=== PATIENT | female | born 1980 | race Caucasian/White ===

== ENCOUNTER → 2018-12-12 11:19 | Outpatient (CLI) | payer OTHER, SELFPAY ==
[2018-12-12 16:15] LABS: Urine N gonorrhoeae NOT DETECTED
[2018-12-12 17:07] LABS: Urine Chlamydia NOT DETECTED
== END ==
PROVIDERS: Visit Provider Obstetrics & Gynecology
DX: Z11.3 Encounter for screening for infections with a predominantly sexual mode of transmission (principal)
CPT/HCPCS: 87491; 87591

== ENCOUNTER → 2018-12-28 16:19 | Outpatient (CLI) | payer OTHER, SELFPAY ==
[2018-12-28 17:51] LABS: Add Manual Diff / Slide Review NO; Basophils Absolute Auto 0 /uL (0-100); Basophils Percent Auto 0.2 % (0-2); Eosinophils Absolute Auto 0 /uL (0-450); Eosinophils Percent Auto 0.6 % (2-4); Hematocrit 37.7 % (36-46); Lymphocytes Absolute Auto 2100 /uL (1100-4500); Lymphocytes Percent Auto 25.5 % (25-40); Mean Corpuscular HGB Conc 34.5 % (30-36); Mean Corpuscular Hemoglobin 30.6 PG (26-34); Mean Corpuscular Volume 88.6 fL (80-100); Monocytes Absolute Auto 400 /uL (0-900); Monocytes Percent Auto 5.2 % (3-14); Neutrophils Absolute Auto 5600 /uL (1500-7000); Neutrophils Percent Auto 68.5 % (50-75); Platelet Count 231 X10^3/uL (150-400); Red Blood Cell Count 4.25 X10^6/uL (4.0-5.2); Red Cell Distribution Width 12.8 % (11.6-14.8); White Blood Cell Count 8.2 X10^3/uL (4.5-11.0)
[2018-12-28 18:14] LABS: Appearance Urine UA SL CLOUDY; Bilirubin Urine UA NEGATIVE (NEGATIVE); Color Urine UA YELLOW; Glucose Urine UA NEGATIVE (Negative); Ketones Urine UA NEGATIVE (NEGATIVE); Leukocyte Esterase Urine UA TRACE (NEGATIVE); Nitrite Urine UA NEGATIVE (Negative); Occult Blood Urine UA TRACE-LYSED (Negative); Protein Urine UA NEGATIVE (Negative); Specific Gravity Urine UA 1.015 (1.000-1.035); Urobilinogen Urine UA 0.2 E.U./dL (0.2)
[2018-12-28 18:24] LABS: Amorphous Sediment Urine 1+; Bacteria Urine Many (>30); Calcium Oxalate Crystals Urine Few; RBC Urine 0-1/HPF (0-5/HPF); Squamous Epithelial Cell Urine 5-10 /HPF (0-5/HPF); WBC Urine 1-5/HPF (0-5/HPF)
[2018-12-28 18:47] LABS: Hepatitis B Surface Antigen NEGATIVE s/c (NEGATIVE); Rubella Antibody IgG 70.6 IU/mL (>15)
[2018-12-28 19:05] LABS: HIV 1 & 2 Ab/Ag 4th Gen Combo NEGATIVE (NEGATIVE); Hep C Virus Ab w/Reflex Quant NEGATIVE s/c (NEGATIVE)
[2018-12-31 13:32] LABS: RPR Screen Nonreactive (Nonreactive)
[2019-01-08 14:49] LABS: Informaseq SEE SEPARATE REPORT
== END ==
PROVIDERS: Visit Provider Obstetrics & Gynecology
DX: O09.529 Supervision of elderly multigravida, unspecified trimester (principal); Z34.81 Encounter for supervision of other normal pregnancy, first trimester; Z3A.11 11 weeks gestation of pregnancy
CPT/HCPCS: 36415; 80055; 81003; 81015; 81507; 86787; 86803; 86850; 86900; 86901; 87086; 87389

== ENCOUNTER → 2019-02-06 17:09 | Outpatient (CLI) | payer OTHER, SELFPAY ==
[2019-02-08 17:29] LABS: Alpha Fetoprotein 58.8 ng/mL (< 6.1)
[2019-02-27 11:28] LABS: AFP, Serum 58.1 ng/mL; Calc Gestational Age 17.4; Est Date Determined by US; Maternal Weight 135 lbs; Number of Fetuses 1; Prev Pregnancies Down Syndrome N
== END ==
PROVIDERS: PCP Family Medicine; Visit Provider Obstetrics & Gynecology
DX: Z34.82 Encounter for supervision of other normal pregnancy, second trimester (principal); Z3A.18 18 weeks gestation of pregnancy
CPT/HCPCS: 36415; 82105

== ENCOUNTER → 2019-02-26 15:15 | Outpatient (CLI) | payer OTHER, SELFPAY ==
--- NOTE | 2019-02-26 15:17 | DI.US.S_ITS ---
PROCEDURE: US OB >= 14 WEEKS FETUS INDICATIONS: ANATOMY OUTSIDE/PRIOR DATING DATA: Last menstrual period (LMP): 10/06/18 LMP-based estimated date of delivery (SINA): 07/13/19. First dating scan (date and location): 12/12/18. Estimated date of delivery (SINA) from first dating scan: 07/18/19. TECHNIQUE: Real-time scanning was performed of the fetus, with image documentation and biometric measurements. COMPARISON: [facility], , OB >= 14 WEEKS FETUS, 02/06/2019, 16:55. FINDINGS: General: A single living intrauterine gestation is present. Presentation: Vertex. Placenta: Placental position is anterior, without previa. Amniotic fluid index: 12.2 cm, normal range is 5-24 cm. heart rate: 130 beats per minute. Maternal cervical canal: 3.3 cm long. Normal lower limit is 2.5 cm. biometrics: Biparietal diameter: 21 weeks 0 days Head circumference: 20 weeks 4 days Abdominal circumference: 20 weeks 2 days Femur length: 21 weeks 0 days Estimated gestational age from initial scan: 19 weeks 5 days Composite gestational age from present scan: 20 weeks 5 days Estimated weight and percentile: 367 g; 91st percentile Measurement variability for biometric dating: +/- 7 days from 14 weeks to 15 weeks 6 days gestation, +/- 10 days from 16 weeks to 21 weeks 6 days gestation, +/- 2 weeks from 22 weeks to 27 weeks 6 days gestation, +/- 3 weeks for 28 weeks gestation or later. weight reference: 4500 g or EFW >90/95% is considered macrosomia or large for gestational age. EFW <10% is small for gestational age. EFW 5% or less is considered intra-uterine growth restriction. Anatomic survey: Neuro: Ventricles are non-dilated at less than 10 mm. Cisterna magna is normal at 3-11 mm. Cerebellum is normal in size and morphology. Nuchal skin fold: Normal at less than 6 mm between 14-21 weeks gestational age. Face: Nose and lips, facial profile are normal. Spine: No evidence for spina bifida. Heart: 4-chambered heart is present, with normal ventricular outflow tracts. Diaphragm: Diaphragm is intact. Stomach: Left-sided stomach is present. Kidneys: No hydronephrosis. Normal is less than 5 mm in 2nd trimester, less than 7 mm in 3rd trimester. Cord: 3-vessel cord has orthotopic insertion. Bladder: Normal in size. Extremities: All 4 extremities identified. IMPRESSION: 1. Single living IUP redemonstrated and interval growth is upper limits of normal. 2. Normal anatomic survey. Dictated by: Alistair BRADFORD Interpreted: Marlon West MD on 02/26/2019 at 16:42 Approved by: Marlon West M.D. on 02/26/2019 at 16:55
== END ==
PROVIDERS: PCP Family Medicine; Visit Provider Obstetrics & Gynecology
DX: Z34.82 Encounter for supervision of other normal pregnancy, second trimester (principal); Z3A.20 20 weeks gestation of pregnancy
CPT/HCPCS: 76811

== ENCOUNTER → 2019-04-05 13:36 | Outpatient (CLI) | payer OTHER, SELFPAY ==
[2019-04-05 15:03] LABS: Hematocrit 33.8 % (36-46)
[2019-04-05 19:16] LABS: GTT (PREG) 1 Hour PP 50gm Dose 175 mg/dL (76-139)
== END ==
PROVIDERS: PCP Family Medicine; Visit Provider Obstetrics & Gynecology
DX: Z34.82 Encounter for supervision of other normal pregnancy, second trimester (principal); Z3A.25 25 weeks gestation of pregnancy
CPT/HCPCS: 36415; 82950; 85014; 85018

== ENCOUNTER → 2019-04-12 07:01 | Outpatient (CLI) | payer OTHER, SELFPAY ==
[2019-04-12 08:48] LABS: Glucose Fasting 92 mg/dL (70-100)
[2019-04-12 09:55] LABS: Glucose 1 Hour 169 mg/dL (70-170)
[2019-04-12 10:36] LABS: Glucose Tol Interpretation INTERPRETATION
[2019-04-12 10:48] LABS: Glucose 2 Hour 143 mg/dL (70-140)
[2019-04-12 11:14] LABS: Glucose 3 Hour 121 mg/dL (70-115)
== END ==
PROVIDERS: PCP Family Medicine; Visit Provider Obstetrics & Gynecology
DX: O99.810 Abnormal glucose complicating pregnancy (principal)
CPT/HCPCS: 36415; 82951; 82952

== ENCOUNTER → 2019-06-18 18:30 | Outpatient (ROUT) | payer OTHER, SELFPAY | PROVIDERS: PCP Family Medicine; Visit Provider Nurse Practitioner Obstetrics & Gynecology | DX: Z36.85 Encounter for antenatal screening for Streptococcus B (principal) | CPT/HCPCS: 87081 ==

== ENCOUNTER 2019-06-30 22:22 | Observation (INO) | payer OTHER, SELFPAY ==
--- NOTE | 2019-06-30 22:59 | PM.OBTRLD ---
Visit Information Visit Information Date of evaluation: 06/30/19 Primary OB Provider: Annia Mccauley On-call OB Provider: Vanesa Lamar Reason for Evaluation: Yes rupture of membranes Comments/Additional reasons for admission: 38YO @38wks here for evaluation of FM after SROM @ 2pm today. Noted repeated gushes of clear fluid starting at 2pm. Declined to come in for evaluation or active management of PROM, but is now concerned about minimal FM this evening. Has been having runs of uncomfortable contractions and then they ease. Now feeling regular, mild contractions. Has noticed occasional spotting mixed w/ mucus vaginal discharge. CE in clinic today /-. Vital Signs Vital Signs: BP 136/80, HR 83, T 36.3C Temporal PFSH Medical History Acne (Chronic) Anxiety (Chronic) Plantar warts (Chronic) Ureteral reflux (Chronic) Family History Grandmother Dementia Grandfather Cancer Social History Smoking Status: Never smoker Review of Systems Review of Systems ROS: Yes All systems reviewed with the patient and are negative except as otherwise documented Exam Presentation: vertex Estimated Weight (lbs): 7 Amniotic Fluid: clear Evaluation Evaluation Baseline heart rate: 130 Variability: Moderate (11-25) monitor accelerations: Absent monitor decelerations: Absent Contraction Frequency (minutes): 4 Uterine Contraction Intensity: Mild Category of Tracing: I Comments: CE deferred Diagnosis, Plan/Disposition Final Diagnosis (1) PROM (premature rupture of membranes): Current Visit: Yes Status: Acute Problem details: PROM x 9 hours without sx of infection Plan/Disposition Plan: Counseled on recommendation for active management of PROM by 12 hours of rupture. Pt is aware of increased risk of infection and declines admission and augmentation at this time. Pt plans to go home and get some rest and is willing to come in NLT 7am if not in labor before than. OB back-up notified of this plan, as a courtesy. OB Disposition: home
== END 2019-06-30 23:00 | disposition home or self-care (01) ==
LOC: LABOR 22:23
PROVIDERS: Admitting Provider Nurse Practitioner Obstetrics & Gynecology; PCP Family Medicine; Referring Provider Nurse Practitioner Obstetrics & Gynecology; Visit Provider Nurse Practitioner Obstetrics & Gynecology
DX: O42.90 Premature rupture of membranes, unspecified as to length of time between rupture and onset of labor, unspecified weeks of gestation (principal); Z3A.38 38 weeks gestation of pregnancy
CPT/HCPCS: 59025; 84112; G0378; G0379

== ENCOUNTER 2019-07-01 07:23 | Inpatient (IN) | payer OTHER, SELFPAY ==
--- NOTE | 2019-07-01 07:45 | P.HPOB_ITS ---
OB HPI Date/Time Date of admission: 07/01/19 Date Patient Seen: 07/01/19 Time Patient Seen: 08:00 History of Present Condition Chief complaint: OBS : 2 Para: 1 Estimated Date of Delivery: 07/14/19 Estimated Gestational Age (weeks): 38.1 Narrative: Anastasia Clay is a 38 year old female @ 38wks by LMP and early US presents for augmentation of labor after PROM, clear fluid, 06/30/19 @ 1400. Pt has experienced irregular, mild ctx, but has not progressed to active labor. has declined Active management of PROM until now. Was able to ssleep overnight. Regular, uncomplicated PN care w/ [facility] and transferred to [facility] @ 28wks. Desires low intervention . Declines CE to check for/AROM forebag. and clinical partner are present and supportive. Indications Other reason(s) for admission: PROM x18 hours, clear fluid, not in labor History of Present care: good care Dating criteria: LMP confirmed by 1st trimester US Obstetrical complications: none Medical complications: none Narrative: Depression/anxiety stable on Citalopram 10mg daily Preadmission Labs Blood type: A (+) positive -: Antibody screen: negative, Cystic fibrosis screen: unknown, GBS status: negative, HBsAG: negative, HIV: negative and RPR/VDLR: negative -: Chlamydia screen: not detected and Gonorrhea screen: not detected -: Rubella: immune HCT: 33.8 HCAB: reactive Cell-free DNA: negative/male 3 hr GTT: 1 hr (169), 2 hr (143) and 3 hr Fasting blood glucose: 92 Prior (ies) History: 02/01/17- NSVB @ 39wks, female, 7#10oz, PROM IOL w/ pitocin and 28 hr labor, epidural, 2nd degree, PP depression Evaluation Evaluation Baseline heart rate: 135 Variability: Moderate (11-25) monitor accelerations: Present monitor decelerations: Absent Contraction Frequency (minutes): 3 Uterine Contraction Intensity: Mild Category of Tracing: I Comments: CE deferred, last CE in clinic 06/30/19 was 6/90/-1. SROM was confirmed by [facility] 06/30/19 @ 2230 w/ reactive LAW [employer]OR at that time. [facility] Medical History Acne (Chronic) Anxiety (Chronic) Plantar warts (Chronic) Ureteral reflux (Chronic) Family History Grandmother Dementia Grandfather Cancer Social History Smoking Status: Never smoker Meds Home Medications and Allergies Home Medications Medication Instructions Recorded Confirmed Type prenat.vits,kami,[id number] 1 tab PO DAILY 12/05/18 07/01/19 History citalopram 10 mg tablet 10 mg PO DAILY #30 tab 04/05/19 07/01/19 Rx Allergies Allergy/AdvReac Type Severity Reaction Status Date / Time No Known Drug Allergies Allergy Verified 07/01/19 08:46 Review of Systems Review of Systems ROS: Yes All systems reviewed with the patient and are negative except as otherwise documented Exam Vital Signs (past 8 hours): BP 122/72, HR90, T36.9C Temporal Resp Effort & Inspection: normal respiratory effort Auscultation: clear to auscultation bilaterally Cardio Rate: regular rate Rhythm: regular rhythm Heart Sounds: S1 normal and S2 normal Presentation: vertex Amniotic Fluid: clear Objective Labs Result Diagrams: 07/01/19 08:10 Assessment and Plan Assessment and Plan Assessment and Plan narrative: A: Term multipara @ 38.1wks PROM x 18 hours, no sx of infection Not in labor No indication for GBS prophylaxis Cat I FHR P: Admit, routine orders w/ CBC, T&S and pitocin augmentation. No cervical exam until breathing through strong contractions for 2 hours. Labor support PRN. OB back-up aware of patient status and plan of care. Reassess in 4 hours or sooner, PRN. Time Spent with Patient Total time spent with greater than 50% in coordination of care (as documented) at patient's floor/unit and/or counseling patient:: 15-24 minutes
[2019-07-01] MEDS: OXYTOCIN PREMIX 30 UNIT/500 ML PLAST..BAG IV (08:32)
[2019-07-01] MEDS: LACTATED RINGERS 1,000 ML 100 ML IV ×3 (08:32→17:30)
[2019-07-01 08:34] LABS: Add Manual Diff / Slide Review NO; Basophils Absolute Auto 0 /uL (0-100); Basophils Percent Auto 0.3 % (0-2); Eosinophils Absolute Auto 0 /uL (0-450); Eosinophils Percent Auto 0.3 % (2-4); Hematocrit 37.4 % (36-46); Hemoglobin 12.5 g/dL (12.0-16.0); Lymphocytes Absolute Auto 2800 /uL (1100-4500); Lymphocytes Percent Auto 22.8 % (25-40); Mean Corpuscular HGB Conc 33.5 % (30-36); Mean Corpuscular Hemoglobin 30.4 PG (26-34); Mean Corpuscular Volume 90.7 fL (80-100); Monocytes Absolute Auto 800 /uL (0-900); Monocytes Percent Auto 6.7 % (3-14); Neutrophils Absolute Auto 8600 /uL (1500-7000); Neutrophils Percent Auto 69.9 % (50-75); Platelet Count 169 X10^3/uL (150-400); Red Blood Cell Count 4.12 X10^6/uL (4.0-5.2); Red Cell Distribution Width 13.8 % (11.6-14.8); White Blood Cell Count 12.4 X10^3/uL (4.5-11.0)
[2019-07-01 08:42] VITALS: BP 122/72
--- NOTE | 2019-07-01 12:17 | PM.OBPRVD ---
 Events: Labor Augmentation and Premature Rupture of Membrane Labor & Delivery Delivery date: 07/01/19 Intrapartal events: None Cervical ripening method: none Induction method: none Delivery augmentation: pitocin Delivery monitor: external FHT and external uterine Route of delivery: L&D Laceration Description: Superficial Estimated blood loss (mL): 25 Anesthesia type: None Narrative: Pitocin max dose 4mu/min. Pt consented to AROM of forebag at 1032 and strong contractions started at 1035. Shortly thereafter, the pitocin was decreased to 2mu/min. Pt labored well unmedicated w/ rapid progression to spontaneous pushing, presumed complete at 1133. Cat I FHR throughout short 1st stage. Pt pushed well in R lateral position w/ Cat 2 FHR for decelerations to 90's. NSVB of a vigorous baby boy in direct OA position w/ no nuchal cord. There was a compound R hand, but no additional maneuvers were needed for delivery of the shoulders. After management of the shoulders, FOB put hands on and lifted the to maternal abdomen. Pitocin was increased to 350mL/hr for AMTSL. After cessation of pulsation, the cord was double clamped by CNM and cut by FOB. Cord blood sample was collected to hold. Gentle cord traction and single maternal push led to spontaneous, Schultze delivery of an apparently intact placenta, membranes and 3VC. Fundus immediately firm and bleeding minimal. Inspection revealed a superficial perineal laceration w/ no indication for repair. Both mother and baby stable and skin to skin as I left the room. Baby 1: gender: Male Presentation: vertex Placenta delivery description: Spontaneous cord vessel description: 3 Vessels score (1 min): 8 score (5 min): 9 Plan for aftercare: Routine PP orders. support. Anticipate d/c to home in 18-24 hours.
[2019-07-01] MEDS: KETOROLAC 30 MG/ML VIAL IV (12:49)
[2019-07-01] MEDS: miSOPROStoL 200 MCG TABLET 400 MCG PO ×2 (12:52→17:31)
[2019-07-01] MEDS: ACETAMINOPHEN 325 MG TABLET 650 MG PO ×2 (15:18→23:08)
[2019-07-01] MEDS: DERMOPLAST SPRAY 20% 60 ML 1 SPRAY TOP (15:19)
[2019-07-01] MEDS: LANOLIN OINT 7 GM 1 APPLIC TOP (15:19)
[2019-07-01] MEDS: OXYCODONE IR 5 MG TABLET PO (16:36)
[2019-07-01] MEDS: METHYLERGONOVINE 0.2 MG/ML VIAL IM (16:43)
[2019-07-01 17:16] LABS: Add Manual Diff / Slide Review NO; Basophils Absolute Auto 100 /uL (0-100); Basophils Percent Auto 0.3 % (0-2); Eosinophils Absolute Auto 0 /uL (0-450); Hematocrit 31.7 % (36-46); Hemoglobin 10.7 g/dL (12.0-16.0); Lymphocytes Absolute Auto 2800 /uL (1100-4500); Lymphocytes Percent Auto 14.8 % (25-40); Mean Corpuscular HGB Conc 33.6 % (30-36); Mean Corpuscular Hemoglobin 30.2 PG (26-34); Monocytes Absolute Auto 1800 /uL (0-900); Monocytes Percent Auto 9.2 % (3-14); Neutrophils Absolute Auto 14500 /uL (1500-7000); Neutrophils Percent Auto 75.7 % (50-75); Platelet Count 175 X10^3/uL (150-400); Red Blood Cell Count 3.53 X10^6/uL (4.0-5.2); Red Cell Distribution Width 13.4 % (11.6-14.8); White Blood Cell Count 19.1 X10^3/uL (4.5-11.0)
--- NOTE | 2019-07-01 17:57 | PM.PN.1 ---
Subjective Subjective Date Patient Seen: 07/01/19 Time Patient Seen: 16:10 Interval history: Bleeding after was 25mL. About 1 hour after , RN reported fundus at U+3 and massaged several clots out. After tht, no further clots, but bleeding remained a steady trickle w/ fundus firm @ U. Remaining 30 units of pitocin in 500mL LR was opened to a bolus and misprostol 400mcg SL was given. Bleeding did not subside and fundus as repeatedly massaged to firm @ U. Patient was assisted to the bathroom, was able to empty her bladder, not measured, reported large quantity by RN. After returning to bed, bleeding was minimal and estimated well below 500mL. Called by RN @ 1603 for patient passed out during her 3rd trip to the bathroom. STAT CBC, 2L LR, and IM Methergine 0.2mg IM ordered verbally. When CNM arrived, pt still on floor in bathroom w/ 3 RNs. All pads since collected and measured, added to an estimated 200mL blood in toilet for a total of 883mL. Patient was assisted back to bed w/ BP 123/86, HR 90's. Healy placed and 200mL clear, yellow urine drained. Admit Hgb/Hct: 12.5/37.4, STAT Hgb/Hct now: 10.7/31.7. Fundus firm, slightly deviated to the right. Oxycodone 5mg PO given for pain relief w/ fundal massage. Patient continues to have a slow trickle of blood, unable to tolerate massage and exam. called and presence requested for consultation, notified patient will need anesthesia if bimanual exam needed. Additional 400mcg Misoprostol SL given and portable US at bedside for her consultation. Bleeding seems to have slowed at this time. Methergine 0.2mg PO Q4hrs PRN ordered and repeat CBC ordered for 2300. Will standby for consultation and continue to monitor closely. Objective Labs Result Diagrams: 07/01/19 17:10 Labs: Laboratory Results - last 24 hr 07/01/19 07/01/19 07/01/19 08:10 08:10 17:10 WBC 12.4 H 19.1 H D RBC 4.12 3.53 L Hgb 12.5 10.7 L Hct 37.4 31.7 L MCV 90.7 90.0 MCH 30.4 30.2 MCHC 33.5 33.6 RDW 13.8 13.4 Plt Count 169 175 Neut % (Auto) 69.9 75.7 H Lymph % (Auto) 22.8 L 14.8 L [place] % (Auto) 6.7 9.2 Eos % (Auto) 0.3 L 0.0 L Baso % (Auto) 0.3 0.3 Neut # (Auto) 8600 H 95285 H Lymph # (Auto) 2800 2800 [place] # (Auto) 800 1800 H Eos # (Auto) 0 0 Baso # (Auto) 0 100 Blood Type A Positive Antibody Screen Negative Assessment & Plan Assessment and plan (1) Syncope due to orthostatic hypotension: Problem details: Heavy bleeding, not yet meeting criteria for PPH contorlled and 2L LR IVF given for fluid replacement. Will continue to monitor closely. Current visit: Yes Status: Acute
--- NOTE | 2019-07-01 18:32 | PM.CN ---
History of Present Illness Consult details Date Patient Seen: 07/01/19 Time Patient Seen: 18:32 Chief complaint: OBS Reason for consult: persistent bleeding Requesting provider: Annia Mccauley Narrative: 38-year-old P2 female delivered via at approximately 11:30 a.m. She had spontaneous delivery of the placenta and normal bleeding initially after delivery, reported minimal bleeding. She only had a small perineal abrasion. Approximately hour after delivery uterus was noted to be somewhat higher and uterine massage expressed a few clots. She reportedly was then fine for a few hours, with normal lochia. At approximately 4:00 p.m. however she then passed out in the bathroom. Prior to that she had a large amount of blood in the toilet when she voided. Uterine massage performed and she did not have any subsequent heavy bleeding, but called since she is still having a steady trickle. Total EBL since delivery approximately 800 mL with measuring her pads and EBL from delivery. Patient had received IV Pitocin, Methergine and 400 mcg Misoprostil since delivery. I advised to give an additional 400-600 mcg misoprostol per rectum or buccal while I came into the hospital to evaluate her. On my arrival, her bleeding had improved, no longer steady trickle, appears to be normal lochia. I was advised that patient would be to sore to have any exam, uterine exploration at the bedside and would it would need to be under anesthesia if needed. Patient no longer feeling lightheaded. No dyspnea. Meds Home Medications and Allergies Home Medications Medication Instructions Recorded Confirmed Type prenat.vits,kami,[id number] 1 tab PO DAILY 12/05/18 07/01/19 History citalopram 10 mg tablet 10 mg PO DAILY #30 tab 04/05/19 07/01/19 Rx Allergies Allergy/AdvReac Type Severity Reaction Status Date / Time No Known Drug Allergies Allergy Verified 07/01/19 08:46 Exam Vital Signs (past 8 hours): afebrile Bp 123/86 P 90 Narrative Exam Narrative: Bedside ultrasound at 6:00 p.m. showed some echogenic material in the uterus near the fundus measuring approximately 2.6 cm. I discussed this may be some normal clot. This did not extend through the uterus. Mid to lower uterus normal endometrial thickness. With uterine massage she did not have anything come out per vagina. Upon rechecking her pad since that time 3 times, she has remained with normal lochia over the past hour. Nothing or minimal expressed with uterine massage. Fundus is U +2, firm. Objective Labs Result Diagrams: 07/01/19 17:10 Labs: Laboratory Results - last 24 hr 07/01/19 07/01/19 07/01/19 08:10 08:10 17:10 WBC 12.4 H 19.1 H D RBC 4.12 3.53 L Hgb 12.5 10.7 L Hct 37.4 31.7 L MCV 90.7 90.0 MCH 30.4 30.2 MCHC 33.5 33.6 RDW 13.8 13.4 Plt Count 169 175 Neut % (Auto) 69.9 75.7 H Lymph % (Auto) 22.8 L 14.8 L [place] % (Auto) 6.7 9.2 Eos % (Auto) 0.3 L 0.0 L Baso % (Auto) 0.3 0.3 Neut # (Auto) 8600 H 01389 H Lymph # (Auto) 2800 2800 [place] # (Auto) 800 1800 H Eos # (Auto) 0 0 Baso # (Auto) 0 100 Blood Type A Positive Antibody Screen Negative Assessment & Plan Assessment & Plan narrative: Impression: Delayed heavier bleeding, possibly due to atony from some intrauterine clots now expressed, bleeding now improved status post additional misoprostol Plan: Continue observation for now. Will keep her NPO for next hour yet, then may eat if bleeding remains normal. Time Spent With Patient Time with patient: 15-24 minutes
[2019-07-01] MEDS: IBUPROFEN 600 MG TABLET PO (19:22)
[2019-07-01] MEDS: METHYLERGONOVINE 0.2 MG TABLET PO (23:08)
[2019-07-01] MEDS: CITALOPRAM 10 MG TABLET PO (23:09)
[2019-07-01] MEDS: DOCUSATE 100 MG CAPSULE PO (23:09)
[2019-07-01 23:23] LABS: Hemoglobin 9.1 g/dL (12.0-16.0); Mean Corpuscular HGB Conc 33.8 % (30-36); Mean Corpuscular Hemoglobin 30.2 PG (26-34); Mean Corpuscular Volume 89.2 fL (80-100); Platelet Count 161 X10^3/uL (150-400); Red Blood Cell Count 3.03 X10^6/uL (4.0-5.2); Red Cell Distribution Width 13.2 % (11.6-14.8); White Blood Cell Count 17.3 X10^3/uL (4.5-11.0)
[2019-07-02] MEDS: IBUPROFEN 600 MG TABLET PO ×2 (02:41→09:35)
[2019-07-02] MEDS: METHYLERGONOVINE 0.2 MG TABLET PO ×2 (03:05→07:46)
[2019-07-02] MEDS: DOCUSATE 100 MG CAPSULE PO (07:45)
[2019-07-02] MEDS: PRENATAL VIT,CALC/IRON/FOLIC 1 TABLET 1 TAB PO (07:46)
[2019-07-02] MEDS: ACETAMINOPHEN 325 MG TABLET 650 MG PO (09:36)
--- NOTE | 2019-07-02 09:53 | P.DS_ITS ---
Discharge Providers Provider Date of admission: 07/01/19 07:23 Discharge Date: 07/02/19 Primary care physician: Chelle Porter MD Consults: 07/02/19 12:13 Consult to Configuration Specialist Routine Comment: Discharge provider: Annia Mccauley CNM Summary Discharge Diagnosis (1) Syncope due to orthostatic hypotension: Status: Acute Problem Details: Heavy bleeding, not yet meeting criteria for PPH controlled and 2L LR IVF given for fluid replacement. VS stable overnight without hypotensive symptoms. Hgb- 9.1, Hct-27. IV iron sucrose 300mg To be given prior to discharge. (2) Encounter for full-term uncomplicated delivery: Status: Acute Problem Details: Routine PP discharge orders and anticipatory guidance Time Spent with Patient Time attestation: Total time spent providing and/or coordinating discharge services: Objective Labs Result Diagrams: 07/01/19 23:05 Labs: Laboratory Results - last 24 hr 07/01/19 07/01/19 17:10 23:05 WBC 19.1 H D 17.3 H RBC 3.53 L 3.03 L Hgb 10.7 L 9.1 L Hct 31.7 L 27.0 L MCV 90.0 89.2 MCH 30.2 30.2 MCHC 33.6 33.8 RDW 13.4 13.2 Plt Count 175 161 Neut % (Auto) 75.7 H Lymph % (Auto) 14.8 L [place] % (Auto) 9.2 Eos % (Auto) 0.0 L Baso % (Auto) 0.3 Neut # (Auto) 18674 H Lymph # (Auto) 2800 [place] # (Auto) 1800 H Eos # (Auto) 0 Baso # (Auto) 100 Exam Vital Signs (past 8 hours): BP 114/78, HR95, RR 98, T98.0F Temporal Other: FF@u, fundus persistently deviated to the right since delivery. Lochia light, no clots. Mild vulvar edema, perineum well approximated. Psych Appearance: grossly normal and well kempt Affect: normal affect Discharge Plan Discharge Plan Patient Disposition: Home Discharge comment: after IV Fe Discharge orders & Medications Prescriptions: New oxycodone 5 mg Tablet 5 mg PO Q4HR PRN (Reason: Pain, Moderate (4-6)) 2 Days Qty: 6 RF: 0 acetaminophen 325 mg Tablet 650 mg PO Q6HR PRN (Reason: Pain, Mild (1-3)) 14 Days Qty: 60 RF: 0 ibuprofen 600 mg Tablet 600 mg PO Q6HR PRN (Reason: Pain, Mild (1-3)) 14 Days Qty: 60 RF: 2 Continued prenat.vits,kami,[id number]-[id number] tablet 1 tab PO DAILY RF: 0 citalopram [Celexa] 10 mg tablet 10 mg PO DAILY Qty: 30 RF: 3 Follow up/Referrals: Chelle Porter MD [Primary Care Provider] - Annia Mccauley CNM [Advanced Harm Reduction Worker] - (Follow-up in 2 weeks and 6 weeks. Patient to schedule appointments online. ) Diet/Activity/Treatments Diet: Diet as Tolerated and Regular Skin/Wound/Dressing Care Report to your healthcare provider any signs of infection, such as:: chills, fever, increased pain, unusual drainage and unusual redness Visit Report/Discharge Packet Instructions: Depression, Anemia Discharge Data Primary Care Provider: Chelle Porter
[2019-07-02] MEDS: IRON SUCROSE 300 MG in SODIUM CHLORIDE 0.9% 100 ML 115 ML IV (10:28)
== END 2019-07-02 18:30 | disposition home or self-care (01) | DRG 807 ==
PROVIDERS: Admitting Provider Nurse Practitioner Obstetrics & Gynecology; PCP Family Medicine; Referring Provider Nurse Practitioner Obstetrics & Gynecology; Visit Provider Nurse Practitioner Obstetrics & Gynecology
DX: O42.02 Full-term premature rupture of membranes, onset of labor within 24 hours of rupture (principal); Z37.0 Single live birth; Z3A.38 38 weeks gestation of pregnancy; I95.1 Orthostatic hypotension
CPT/HCPCS: 36415; 59025; 59050; 76815; 84112; 85025; 85027; 86850; 86900; 86901; G0378; G0379; J1756; J1885; J2210; J2590; S0191

== ENCOUNTER 2022-03-03 19:50 | Emergency (ER) | payer OTHER, SELFPAY ==
[2022-03-03 19:59] VITALS: BP 150/78; PULSE 83; RESP 20; TEMP 37; O2SAT 97; BMI 52.4
--- NOTE | 2022-03-03 20:01 | ED.GENADULT ---
HPI - General Adult General Chief complaint: Ear Stated complaint: Lt. ear pain Time Seen by Provider: 03/03/22 19:59 History of Present Illness HPI narrative: 41-year-old female nonsmoker with noncontributory medical history presents with a chief complaint of some mild upper respiratory symptoms including nasal congestion and some sneezing and then significant left ear pain over the course of the day. She denies any trauma or injury and has not been swimming or diving. She denies any fever or chills. She denies bleeding or drainage but does feel like her ear is plugged. She is had no chest pain or shortness of breath. She denies nausea, vomiting or diarrhea. Related Data Home Medications Medication Instructions Recorded Confirmed prenat.vits,kami,dep-[id number] 1 tab PO DAILY 12/05/18 07/01/19 Previous Rx's Medication Instructions Recorded ibuprofen 600 mg tablet 600 mg PO Q6HR PRN Pain, Mild 07/02/19 (1-3) 14 days #60 tabs citalopram 10 mg tablet See Rx Instructions .Route 09/18/19 .COMPLEX #90 tabs Allergies Allergy/AdvReac Type Severity Reaction Status Date / Time No Known Drug Allergies Allergy Verified 07/01/19 08:46 Review of Systems Review of Systems Narrative: GENERAL: See HPI HEENT: See HPI RESPIRATORY: See HPI CARDIOVASCULAR: Denies chest pain, palpitations, orthopnea, edema, GASTROINTESTINAL: Denies nausea, vomiting, abdominal pain, diarrhea, constipation, melena. : Denies dysuria, frequency, incontinence, hematuria, urinary retention. MUSCULOSKELETAL: denies weakness, joint pain, or bony pain SKIN: Denies rash, skin lesions, or other NEUROLOGIC: Denies weakness, headache, numbness, change in speech, confusion, seizures, incoordination. PSYCHIATRIC: No concerning psychosocial issues. 12 point review of systems is negative except for those stated above Patient History Medical History Acne Anxiety Plantar warts Ureteral reflux Family History Grandmother Dementia Grandfather Cancer Social History Smoking Status: Never smoker Smoking Status: Never smoker Exam Narrative Exam Narrative: GEN: AOx3 and in mild distress EYES: Pupils are equal, round, and reactive to light and accommodation. Extraoccular muscles are intact bilaterally. There is no subconjunctival hemorrhage or exudate. ENT: Left tympanic membrane is clear with normal landmarks, no effusion or perforation noted, external auditory canal has very minimal erythema but no edema or drainage. CHEST: Lungs are clear to auscultation bilaterally and free of wheezes, rales, or rhonchi. Heart rate is regular rhythm, there are no murmurs, clicks, rubs, or gallops. There is no chest wall tenderness. ABD: Abdomen is soft and nontender. There is no guarding or rebound. Bowel sounds are normal in all 4 quadrants. There is no mass or organomegaly. EXT: Full painless ROM of all extremities with no loss of sensation or strength. SKIN: Warm, pink, and dry. No erythema or rash Initial Vital Signs Initial Vital Signs: Vital Signs Temperature 98.6 F 03/03/22 19:59 Pulse Rate 83 03/03/22 19:59 Respiratory Rate 20 03/03/22 19:59 Blood Pressure 150/78 H 03/03/22 19:59 Pulse Oximetry 97 03/03/22 19:59 Oxygen Delivery Method 03/03/22 19:59 Course Orders Ordered: Discontinued Medications Hydrocodone Bitart/Acetaminophen (Hydrocodone/Acet 5/325 Prepack) 1 bottle MISC SEEINSTR ONE Stop: 03/03/22 20:12 Last Admin: 03/03/22 20:28 Dose: 1 bottle Documented By: BS Vital Signs Vital signs: Vital Signs - 8 hr 03/03/22 19:59 Temperature 98.6 F Pulse Rate 83 Respiratory Rate 20 Blood Pressure 150/78 H Pulse Oximetry 97 Oxygen Delivery Method Room Air Medical Decision Making [facility] Narrative Medical decision making narrative: Patient with reassuring history and physical, no trauma, fever or evidence of bacterial infection, perhaps minimal erythema but clear tympanic membrane with normal landmarks. No perforation, bulging, retraction or obvious effusion. We discussed that there is currently not any indication for antibiotics, recommended antihistamines, anti-inflammatories and decongestants. Given return precautions and questions answered to her apparent satisfaction Discharge Plan Departure Patient Disposition: Home Clinical Impression: Acute otalgia Qualifiers: Laterality: left Qualified Code(s): H92.02 - Otalgia, left ear Instructions: DI for Ear Pain-Adult Activity Restrictions/Additional Instructions: *You have been diagnosed with [left ear pain. As we discussed your history and physical exam are reassuring. There is no evidence at this time of a bacterial infection. Please consider the use of the ewes-lhn-jaassgu medications listed below as we discussed] *What to do: *Please consider the use of an [id number] antihistamines such as Yue, Zyrtec or Benadryl to dry the nasal secretions that are likely the cause of your ear pain. Additionally, as we discussed a decongestant (pseudoephedrine typically works a bit better than phenylephrine). As well as routine use of anti-inflammatories for the next few days. *Please follow up with your primary care provider in 2-3 days, call for an appointment. Let them know you were seen in the Emergency Department and that we ask that you be seen in follow up. We will electronically transmit a record of today's note if your PCP is in our system *If you do not have a primary care provider please contact the [facility] Resource line at [phone]. They will ask some questions about your medical history and help get you set up with a doctor in the community. *Return to Emergency Department if you should have any new, worsening or concerning symptoms Prescriptions: No Action citalopram 10 mg tablet See Rx Instructions .ROUTE .COMPLEX Qty: 90 3RF Dose Instruction: TAKE ONE TABLET BY MOUTH ONE TIME DAILY Rx Instructions: TAKE ONE TABLET BY MOUTH ONE TIME DAILY prenat.vits,kami,wrd-ggei-wvbqe tablet 1 tab PO DAILY ibuprofen 600 mg Tablet 600 mg PO Q6HR PRN (Reason: Pain, Mild (1-3)) 14 Days Qty: 60 2RF Referrals: Chelle Porter MD [Primary Care Provider] - Visit Report Forms: Patient Portal/API
[2022-03-03] MEDS: HYDROCODONE/ACET 5/325 PREPACK 1 BOTTLE MISC (20:28)
== END 2022-03-03 20:54 | disposition home or self-care (01) ==
PROVIDERS: Emergency Provider Emergency Medicine; PCP Family Medicine
DX: H92.02 Otalgia, left ear (principal)
CPT/HCPCS: 99281

== ENCOUNTER → 2022-03-13 09:29 | Outpatient (CLI) | payer OTHER, SELFPAY ==
[2022-03-13 10:58] LABS: Influenza A - CEPHEID Flu A NEGATIVE (NEGATIVE); Influenza B - CEPHEID Flu B NEGATIVE (NEGATIVE); Respiratory Syncytial Virus Negative (Negative)
[2022-03-13 11:34] LABS: COVID-19 CEPHEID 4-PLEX PCR Negative (Negative)
== END ==
PROVIDERS: PCP Family Medicine; Visit Provider Physician Assistant
DX: J06.9 Acute upper respiratory infection, unspecified (principal); Z20.822 Contact with and (suspected) exposure to COVID-19
CPT/HCPCS: 0241U

== ENCOUNTER → 2023-09-19 10:40 | Outpatient (CLI) | payer OTHER, SELFPAY ==
--- NOTE | 2023-09-19 10:41 | DI.RAD.S_ITS ---
PROCEDURE: XR CHEST 2V INDICATIONS: Cough TECHNIQUE: 2 views of the chest were acquired. COMPARISON: None. FINDINGS: Surgical changes and devices: None. Lungs and pleura: Lungs are clear. No pleural effusions or pneumothorax. Mediastinum: Mediastinal contours are normal. Heart size is normal. Bones and chest wall: No suspicious bony abnormalities. Soft tissues appear unremarkable. IMPRESSION: No acute cardiopulmonary abnormality is seen. Dictated by: Silvano Lima M.D. on 09/19/2023 at 11:46 Approved by: Silvano Lima M.D. on 09/19/2023 at 11:46
== END ==
LOC: RAD 10:41
PROVIDERS: PCP Family Medicine; Referring Provider Nurse Practitioner Family; Visit Provider Nurse Practitioner Family
DX: R05.9 Cough, unspecified (principal)
CPT/HCPCS: 71046

== ENCOUNTER → 2025-02-26 09:35 | Outpatient (CLI) | payer OTHER, SELFPAY ==
[2025-02-26 10:01] LABS: Add Manual Diff / Slide Review NO; Hematocrit 39.5 % (36-46); Hemoglobin 13.5 g/dL (12.0-16.0); Lymphocytes Absolute Auto 1700 /uL (1100-4500); Mean Corpuscular HGB Conc 34.1 % (30-36); Mean Corpuscular Hemoglobin 30.5 PG (26-34); Mean Corpuscular Volume 89.4 fL (80-100); Platelet Count 259 X10^3/uL (150-400)
[2025-02-26 10:24] LABS: Alanine Aminotransferase 18 IU/L (<35); Albumin 4.1 g/dL (3.5-5.0); Albumin Globulin Ratio 1.6 (1.0-2.8); Alkaline Phosphatase 62 U/L (38-126); Blood Urea Nitrogen 14 mg/dL (7-17); Calcium 9.3 mg/dL (8.4-10.2); Carbon Dioxide 23 mmol/L (22-32); Chloride 108 mmol/L (98-107); Estimated Glomerular Filt Rate > 60 mL/min (>60); Globulin 2.5 g/dL (1.7-4.1); Glucose 103 mg/dL (70-99); HEMOLYSIS < 15 (0-50); Potassium 4.3 mmol/L (3.4-5.1); Sodium 138 mmol/L (137-145); Total Protein 6.6 g/dL (6.3-8.2)
== END ==
PROVIDERS: PCP Family Medicine; Referring Provider Family Medicine; Visit Provider Family Medicine
DX: Z00.00 Encounter for general adult medical examination without abnormal findings (principal)
CPT/HCPCS: 36415; 80053; 85025